=== PATIENT | female | born 1995 | race Two or more races ===

== ENCOUNTER 2016-09-27 16:53 | Emergency (ER) | payer MEDICAID ==
[~2016-09-27] VITALS: Ht 160 cm; Wt 49.9 kg
[2016-09-27] MEDS ORDERED: IV NORMAL SALINE 1000 ML BAG IV ONE (17:00)
--- NOTE | 2016-09-27 17:40 | NUR ---
Walter FRANCISCO, reports pt passed out at school for 3-4 minutes and also this morning, hx of same in past & anemia.
--- NOTE | 2016-09-27 17:40 | NUR ---
Pt c/o syncope x 2 today, and intermittant sharp CP, no other complaints, no distress noted.
[2016-09-27 17:49] LABS: BASOPHILS % (AUTO) 0.3 % (0.0-2.0); EOSINOPHILS # (AUTO) 0.1 K/uL (0.0-0.7); EOSINOPHILS % (AUTO) 1.6 % (0.0-7.0); HEMATOCRIT 33.8 % (37-47); HEMOGLOBIN 10.8 G/DL (12.0-16.0); LYMPHOCYTES # (AUTO) 2.6 K/uL (20.0-40.0); LYMPHOCYTES % (AUTO) 31.6 % (20.5-74.5); MEAN CORPUSCULAR HEMOGLOBIN 24.6 UUG (27.0-31.0); MEAN CORPUSCULAR HGB CONC 32 g/dL (32.0-37.0); MEAN CORPUSCULAR VOLUME 76.5 FL (81.0-99.0); MONOCYTES # (AUTO) 0.7 K/uL (2.0-10.0); MONOCYTES % (AUTO) 8.5 % (0-11); NEUTROPHILS # (AUTO) 4.9 K/uL (1.8-8.9); PLATELET COUNT (AUTO) 235 K/UL (150-450); RED BLOOD CELL COUNT(AUTO) 4.41 MIL/UL (4.2-5.4); RED CELL DISTRIBUTION WIDTH 13.2 % (11.5-14.5); WHITE BLOOD COUNT (AUTO) 8.3 K/UL (4.0-11.2)
[2016-09-27 17:57] LABS: CALCIUM 7.8 mg/dL (8.5-10.1); CARBON DIOXIDE 26 mmol/L (21-32); CHLORIDE 106 mmol/L (98-107); GFR > 130 mL/min (>60); GLUCOSE 134 mg/dL (74-106); POTASSIUM 3.5 mmol/L (3.5-5.1); SODIUM SERUM 140 mmol/L (136-145); UREA NITROGEN, BLOOD 9 mg/dL (7-18)
[2016-09-27 18:00] LABS: CREATININE 0.5 mg/dL (0.6-1.3)
[2016-09-27 18:09] LABS: *URINE HCG, QUAL NEGATIVE (NEGATIVE)
--- NOTE | 2016-09-27 19:09 | NUR ---
removed IV, 18g right AC by [employer], intact, site okay, bandaged. Gave pt RX and d/c instructions, verbalized understanding.
== END 2016-09-27 18:56 | disposition home or self-care (01) ==
LOC: ER 17:06
DX: D64.9 Anemia, unspecified (principal); R55 Syncope and collapse
CPT/HCPCS: 36415; 71010; 80048; 84484; 84703; 85025; 85379; 93005; 96360; 99285; A4663; J7030; 70030-TC